=== PATIENT | female | born 1985 | race Caucasian/White ===

== ENCOUNTER 2017-12-27 15:03 | Emergency (ER) | payer BC ==
[~2017-12-27] VITALS: Ht 154.9 cm; Wt 164.0 kg
--- OUTSIDE RECORDS SUMMARY | ~2017-12-27 | XMS | Clinical Summary ---
Demographics + + + | Address | [address] | | | [place] [address] | + + + | Home Phone | | + + + | Preferred Language | Unknown | + + + | Marital Status | Single | + + + | [employer] Affiliation | Unknown | + + + | Race | White | + + + | Ethnic Group | Not or | + + + Author + + + | Author | NON REVENUE LOCATIONS | + + + | Organization | NON REVENUE LOCATIONS | + + + | Address | Unknown | + + + | Phone | Unavailable | + + + Support +------+ +---------+ + | Name | Relationship | Address | Phone | +------+ +---------+ + ECON | Unknown | | +------+ +---------+ + Care Team Providers + +------+ + | Care Capsule Filler Name | Role | Phone | + +------+ + PP | Unavailable | + +------+ + Source Comments JOSÉ LUIS is fully live on both [facility] and [facility] Allergies + + + + + + | Active Allergy | Reactions | Severity | Noted | Comments | | | | | Date | | + + + + + + | Amoxicillin | Hives | | 03/29/20 | | | | | | 15 | | + + + + + + | Ciprofloxacin | Hives | | 03/29/20 | | | | | | 15 | | + + + + + + Current Medications + + +-------+---------+------+------+-------+ | Prescription | Sig. | Disp. | Refills | Star | End | Statu | | | | | | t | Date | s | | | | | | Date | | | + + +-------+---------+------+------+-------+ | oxybutynin 5 mg | Take 5 mg by mouth | | | | | Activ | | oral tablet | three times daily. | | | | | e | + + +-------+---------+------+------+-------+ Active Problems Not on file Social History + +-------+ +--------+------+ | Tobacco Use | Types | Packs/Day | Years | Date | | | | | Used | | + +-------+ +--------+------+ | Never Smoker | | | | | + +-------+ +--------+------+ + + + | Sex Assigned at | Date Recorded | | | | + + + | Not on file | | + + + Last Filed Vital Signs + + + + | Vital Sign | Reading | Time Taken | + + + + | Blood Pressure | 114/69 | 03/29/2015 2:29 PM PDT | + + + + | Pulse | 71 | 03/29/2015 2:29 PM PDT | + + + + | Temperature | 37.1 C (98.7 F) | 03/29/2015 2:29 PM PDT | + + + + | Respiratory Rate | - | - | + + + + | Oxygen Saturation | - | - | + + + + | Inhaled Oxygen | - | - | | Concentration | | | + + + + | Weight | 75.1 kg (165 lb 8 | 03/29/2015 2:29 PM PDT | | | oz) | | + + + + | Height | - | - | + + + + | Body Mass Index | - | - | + + + + Plan of Treatment + + + + + | Health Maintenance | Due Date | Last Done | Comments | + + + + + | INFLUENZA VACCINE | | | | | (FLU SHOT) | 7 | | | + + + + + Results Not on filefrom Last 3 Months"
--- OUTSIDE RECORDS SUMMARY | ~2017-12-27 | XMS | Clinical Summary ---
Demographics + + + | Address | [address] | | | [place] [address] | + + + | Home Phone | | + + + | Preferred Language | Unknown | + + + | Marital Status | Single | + + + | Advent Affiliation | Unknown | + + + [...] Team Providers + +------+ + | Care Chemical Process Equipment Operator Name | Role | Phone | + +------+ + PP | Unavailable | + +------+ + Source Comments JOSÉ LUIS is fully live on both [facility] and [facility] Allergies + + + + + + [...]
[2017-12-27] MEDS ORDERED: OXYBUTYNIN CHLOR5 MG PO (15:47)
[2017-12-27] MEDS ORDERED: NORCO 10-325 T1 EACH PO (17:29)
[2017-12-27] MEDS ORDERED: ZOFRAN4 MG PO (17:29)
[2017-12-27] MEDS ORDERED: NAPROSYN500 MG PO (17:29)
== END 2017-12-27 18:07 | disposition home or self-care (01) ==
LOC: ED 15:03
DX: N83.201 Unspecified ovarian cyst, right side (principal); Z88.1 Allergy status to other antibiotic agents; Z91.040 Latex allergy status; Z79.899 Other long term (current) drug therapy
CPT/HCPCS: 74177; 80053; 81001; 83690; 84703; 85025; 96361; 96374; 96375; 99284; J1170; J2405; J7030; Q9967

== ENCOUNTER 2018-01-21 06:47 | Day surgery (SDC) | payer BC ==
[~2018-01-21] VITALS: Ht 154.9 cm; Wt 74.4 kg
[~2018-01-21 06:47] MED LIST: NAPROSYN500 MG PO; NORCO 10-325 T1 EACH PO; OXYBUTYNIN CHLOR5 MG PO; ZOFRAN4 MG PO
--- NOTE | 2018-01-21 09:29 | NUR ---
PT READY FOR SURGERY, MOTHER IN W/PT FOR SUPPORT. HAD PRAYER WITH PT, WILL FOLLOW NEEDED
--- NOTE | 2018-01-21 09:43 | NUR ---
01/21/18 0943 aPo Claire PT'S OXYGEN SATURATION REMAINS 100% ON 6L VIA MASK. OXYGEN DC @ THIS TIME.
--- NOTE | 2018-01-21 10:27 | NUR ---
PT IS BACK TO DS FROM PACU. PT REPORTS THAT SHE NEEDS TO URINATE. SHE DENIES SIGNIFICANT PAIN OR NAUSEA. SHE IS ASSISTED TO AND FROM THE BATHROOM. SHE STATES THAT GETTING BACK FROM THE BATHROOM SHE IS A LITTLE DIZZY. SHE IS GIVEN ICE WATER AND OFFERED JELLO. FAMILY IS AT THE BEDSIDE. NO OTHER C/O'S AT THIS TIME. WILL REASSESS WITHIN THE HOUR.
[2018-01-21] MEDS ORDERED: PERCOCET 5-3251 EACH PO (10:42)
[2018-01-21] MEDS ORDERED: IBUPROFEN800 MG PO (10:42)
--- NOTE | 2018-01-21 11:05 | NUR ---
LE 1050: RX GIVEN TO FAMILY MEMBER. PT REQUESTS SOMETHING FOR STATING SHE IS A 5/10. PT IS EDUCATED ON HOW TO GET DRESSED. SHE HAS MET ALL DC CRITERIA AT THIS TIME.
--- NOTE | 2018-02-03 10:16 | OR ---
[facility] [address] [place] [address] [place], [place] [address] Signed DATE OF OPERATION: 01/21/2018 SURGEON: Sumi Emanuel MD PREOPERATIVE DIAGNOSES: A 32-year-old 0 with menometrorrhagia, dysmenorrhea, polycystic ovarian syndrome, irritable bowel syndrome, dyspareunia. POSTOPERATIVE DIAGNOSES: A 32-year-old 0 with menometrorrhagia, dysmenorrhea, polycystic ovarian syndrome, irritable bowel syndrome, dyspareunia, endometrial polyps, and partial right ovarian torsion. PROCEDURE: Laparoscopic right salpingo-oophorectomy and hysteroscopy with MyoSure and endometrial ablation. PATHOLOGY: Endometrial curettings. JAVASCRIPT ENGINEER SURGEON: Samm Dalal MD ANESTHESIA: General endotracheal per Connor Clemente CRNA. IV FLUIDS IN: 1450 mL of lactated Ringer's. URINE OUTPUT: 200 mL with Blackman draining to gravity. ESTIMATED BLOOD LOSS: 10 mL. HYSTEROSCOPE/MYOSURE APPARATUS: 2000 mL in with a 495 mL deficit out. FINDINGS: Mildly enlarged boggy-appearing uterus, right ovary enlarged, and polycystic with Electronically Signed By: SUMI EMANUEL MD 02/03/18 1016 PATIENT NAME: АНДРЕЙ HODGE OPERATIVE REPORT DATE OF : 87 REPORT #: [id number] PHYSICIAN: SUMI EMANUEL MD PCP: TATO DENT MD REPORT IS CONFIDENTIAL AND NOT TO BE RELEASED WITHOUT AUTHORIZATION [facility] [address] [place], [place] [address] Signed partial torsion and endometrial polyps. PROCEDURE TECHNIQUE: The patient was taken back to the operating room, she was placed on the operating table in supine position. Her IV fluids were already going and she was then placed in Darrius stirrups into the dorsal lithotomy position, all still awake and subsequently underwent general endotracheal anesthesia with rapid sequence intubation. She was then prepped and draped in a normal sterile fashion. A Blackman catheter was placed under sterile technique and a weighted speculum placed in the vagina and a sponge stick placed into the vagina. Attention was then turned to the abdomen and her old vertical infraumbilical incision, her scar was incised using a scalpel after injecting approximately 5 mL of 0.5% Marcaine plain subcutaneously. This incision was then carried down to the level of the fascia, which was then opened with Metzenbaum scissors and a stitch of 0 Vicryl was placed on either side of that incision. The peritoneum was then identified and entered bluntly and a Italo trocar was then placed and tied down with the 0 Vicryl on either side. The carbon dioxide was attached and the abdomen insufflated. Please note, in the process of placing the Espinal and opening the peritoneum, a small S retractor was used and when the insulation cupola operator's finger was removed from the incision after opening the peritoneum, right index finger was degloved and attention was then turned to finding that a small piece of glove within the abdomen. It was located intraoperatively and removed easily. The patient was then given 2 g of Ancef IV prophylaxis. A second port site was placed 5 mm on the patient's left and lateral midline area. Again, approximately 2 mL of 0.5% plain Marcaine was injected subcutaneously. A 5 mm incision then made with a scalpel and then the 5 mm trocar easily placed in the port remained behind after removing the trocar. A blunt grasper was then used through that port to mobilize the uterus and the bowel such that the patient's ovaries and tubes could be easily visualized. The uterus appeared relatively normal, although as I said, mildly enlarged and boggy. The ovaries were large bilaterally and the patient's right ovary appeared nearly as large as her uterus and it did appear to easily torsed with movement. Attention was then turned to the right ovary and tube, which were grasped with a blunt grasper. A third port site was made on the right midline and adjacent to the umbilicus another 5 mm. Again, approximately 3 mL of 0.5% plain Marcaine was injected subcutaneously and then the scalpel used to make a 5 mm incision and the trocar was then placed under direct visualization. The LigaSure apparatus was then used to take down the infundibulopelvic ligament on the right assuring measuring the location of the right ureter prior to doing that was well below the area of surgery and good hemostasis was noted throughout the procedure. Once the infundibulopelvic ligament was incised, the tube and ovary were grasped and put on top of the uterus. The infundibulopelvic stump was then grasped and an Endoloop placed around it to assure hemostasis. The tube and ovary were then removed through the large port through the Italo port with after placing the tube and ovary into an Endo bag while using a 5 mm camera to enable the process. Once this was completed, all Electronically Signed By: SUMI EMANUEL MD 02/03/18 1016 PATIENT NAME: АНДРЕЙ HODGE OPERATIVE REPORT DATE OF : 87 REPORT #: [id number] PHYSICIAN: SUMI EMANUEL MD PCP: TATO DENT MD REPORT IS CONFIDENTIAL AND NOT TO BE RELEASED WITHOUT AUTHORIZATION [facility] [address] [place], [place] [address] Signed instruments were then removed from the abdomen after again re-visualizing the pelvis noting all was normal in appearance and hemostatic. Instruments were removed. Abdomen deflated of carbon dioxide and the incisions reapproximated. The infraumbilical incision was reapproximated with 0 Vicryl in a continuous running fashion along the fascial plane and then those two 0 Vicryls that were on either side of the fascial incision were reapproximated as well. 3-0 repeat was used to reapproximate the skin on all of those incisions in a continuous running fashion. Good hemostasis was achieved on all 3 incisions. There were no complications. Attention was then turned to the patient's hysteroscopic procedure. The uterus was sounded to 8 cm and dilated. Hysteroscope was easily placed and visualization of the uterine cavity, the endometrial cavity was noted to have multiple thickened polyps. The MyoSure apparatus was then attached and these polyps were removed. However, the ostia were not visualized due to the thickness of the endometrial tissue. Once adequate polypectomy had been performed, the MyoSure was removed and attention was then turned to performing the endometrial ablation. The uterine cavity was reassessed and found to be 6 cm in length, the cervix approximately 2 cm in length, and the NovaSure wand was placed easily. Again, the length noted at 6 cm. The width was 3.5 cm and the cavity was assessed and found to be intact and the NovaSure procedure was then performed with good ablation for approximately 115 seconds. The NovaSure wand was then removed. The single-tooth tenaculum, which had been on the anterior lip of the cervix was also removed. Good hemostasis was noted. The patient was awakened, extubated, and taken to recovery room in stable condition. All sponge, needle, and instrument counts were correct. There were no complications. Sumi Emanuel MD JKM/MODL /[id number] Copies: ~ Electronically Signed By: SUMI EMANUEL MD 02/03/18 1016 PATIENT NAME: АНДРЕЙ HODGE OPERATIVE REPORT DATE OF : 87 REPORT #: [id number] PHYSICIAN: SUMI EMANUEL MD PCP: TATO DENT MD REPORT IS CONFIDENTIAL AND NOT TO BE RELEASED WITHOUT AUTHORIZATION
== END 2018-01-21 11:30 | disposition home or self-care (01) ==
LOC: DS 06:47
PROVIDERS: Obstetrics & Gynecology
PROC: 0UT04ZZ Resection of Right Ovary, Percutaneous Endoscopic Approach (ICD-10-PCS; principal; 2018-01-21 06:45)
PROC: 0UT54ZZ Resection of Right Fallopian Tube, Percutaneous Endoscopic Approach (ICD-10-PCS; 2018-01-21 06:45)
PROC: 0UDB8ZX Extraction of Endometrium, Via Natural or Artificial Opening Endoscopic, Diagnostic (ICD-10-PCS; 2018-01-21 06:45)
DX: N83.11 Corpus luteum cyst of right ovary (principal); N84.0 Polyp of corpus uteri; N92.1 Excessive and frequent menstruation with irregular cycle; N83.511 Torsion of right ovary and ovarian pedicle; N94.10 Unspecified dyspareunia; K58.0 Irritable bowel syndrome with diarrhea; N94.6 Dysmenorrhea, unspecified; E28.2 Polycystic ovarian syndrome; F32.9 Major depressive disorder, single episode, unspecified; N30.20 Other chronic cystitis without hematuria; Q05.7 Lumbar spina bifida without hydrocephalus; L68.0 Hirsutism; Z88.1 Allergy status to other antibiotic agents; Z91.040 Latex allergy status; Z79.1 Long term (current) use of non-steroidal anti-inflammatories (NSAID); Z79.899 Other long term (current) drug therapy
CPT/HCPCS: 00840; J0690; J1885; J2250; J2405; J2704; J2710; J2765; J3010; J7120

== ENCOUNTER 2020-06-16 18:10 | Emergency (ER) | payer BC ==
[~2020-06-16] VITALS: Ht 154.9 cm; Wt 74.8 kg
[~2020-06-16 18:10] MED LIST changes: +IBUPROFEN800 MG PO; +PERCOCET 5-3251 EACH PO
[2020-06-16] MEDS ORDERED: VALACYCLOVIR500 MG PO (18:22)
== END 2020-06-16 19:20 | disposition home or self-care (01) ==
LOC: ED 18:10
DX: S93.601A Unspecified sprain of right foot, initial encounter (principal); Z88.0 Allergy status to penicillin; Z91.040 Latex allergy status; Z88.1 Allergy status to other antibiotic agents; X50.1XXA Overexertion from prolonged static or awkward postures, initial encounter
CPT/HCPCS: 73630; 99283-25

== ENCOUNTER 2024-11-22 05:58 | Emergency (ER) | payer BC ==
[~2024-11-22] VITALS: Ht 154.9 cm; Wt 79.8 kg
[~2024-11-22 05:58] MED LIST changes: +CEPHALEXIN500 M1 PO; +HYDROCODON-ACE1 EA10 PO; +VALACYCLOVIR500 MG PO
[2024-11-22 06:29] LABS: BILIRUBIN, URINE NEGATIVE (negative); BLOOD/HGB, URINE NEGATIVE (Negative); KETONE, URINE NEGATIVE (Negative); LEUK ESTERASE, URINE NEGATIVE (negative); NITRITE, URINE NEGATIVE (negative); PH, URINE 5.5 (5-7)
[2024-11-22 06:38] LABS: BACTERIA, URINE RARE /hpf (negative); CASTS, URINE NONE SEEN \\lpf; COLLECTION TYPE, URINE CLEAN CATCH; CRYSTALS, URINE NONE SEEN (0-1+); EPITHELIAL CELLS, URINE SQUAMOUS 1+ /lpf (0-1+); RED BLOOD CELLS, URINE 0-1 /hpf (0-5); REFLEX CULTURE, URINE No (No)
[2024-11-22 07:04] LABS: INFLUENZA B NAA NEGATIVE (NEGATIVE); RESPIRATORY SYNCYTIAL VIR NAA NEGATIVE (NEGATIVE)
[2024-11-22] MEDS ORDERED: SODIUM CHLORIDE 0.9% 1,000 ML IV ONE (07:45)
[2024-11-22 08:16] LABS: ALBUMIN 3.7 g/dL (3.4-5.0); ALBUMIN/GLOBULIN RATIO 0.95 (1.1-2.4); ANION GAP 14.9 (7-21); BILIRUBIN, TOTAL 0.2 ng/dL (0.2-1.0); BUN/CREATININE RATIO 11.66 (6.0-28.6); CALCIUM 8.5 mg/dL (8.5-10.1); CREATININE, SERUM 0.6 mg/dL (0.55-1.02); POTASSIUM 3.9 mmol/L (3.5-5.1); PROTEIN, TOTAL 7.6 g/dL (6.4-8.2)
[2024-11-22 08:52] VITALS: BP 111/76
== END 2024-11-22 08:53 | disposition home or self-care (01) ==
LOC: ED 05:58
PROVIDERS: Emergency Medicine; Internal Medicine
DX: B34.9 Viral infection, unspecified (principal); Z88.0 Allergy status to penicillin; Z88.1 Allergy status to other antibiotic agents; Z91.040 Latex allergy status; Z79.899 Other long term (current) drug therapy
CPT/HCPCS: 36415; 80053; 81001; 87502; 87651; 99283; J7030; U0002